=== PATIENT | female | born 1995 | race Two or more races ===

== ENCOUNTER 2020-11-29 17:06 | Emergency (ER) | payer OTHER ==
[2020-11-29 17:29] VITALS: BMI 32.5
[2020-11-29 18:28] LABS: BASO % 1.9 % (0-2.0); EOS % 0.4 % (0-4.5); HEMATOCRIT 45.9 % (32.4-45.2); HEMOGLOBIN 15.4 GM/dl (10.7-15.3); LYMPH % 27.7 % (8-40); MCH 28.6 pg (25.7-33.7); MCHC 33.6 g/dl (32.0-36.0); MEAN CELL VOLUME 85.1 fl (80-96); MEAN PLT VOLUME 7.9 fl (7.5-11.1); MONO % 7.7 % (3.8-10.2); NEUT % 62.3 % (42.8-82.8); PLATELET COUNT 263 K/MM3 (134-434); RDW 12.3 % (11.6-15.6); WHITE BLOOD COUNT 10.9 K/mm3 (4.0-10.8)
[2020-11-29 18:44] LABS: ACTIVATED PTT 31.6 SECONDS (25.2-36.5)
[2020-11-29 18:47] LABS: ALBUMIN 4.8 g/dl (3.4-5.0); ALK PHOS 62 U/L (45-117); ANION GAP 6 MMOL/L (8-16); BILIRUBIN,TOTAL 0.8 mg/dl (0.2-1); CALCIUM 9.5 mg/dl (8.5-10); CHLORIDE 105 mmol/L (98-107); CO2 26 mmol/L (21-32); CREATININE 0.4 mg/dl (0.55-1.3); GLUCOSE,RANDOM 85 mg/dl (74-106); POTASSIUM 4.5 mmol/L (3.5-5.1); SGOT/AST 35 U/L (15-37); SGPT/ALT 41 U/L (13-61); SODIUM 137 mmol/L (136-145); TOT PROT 6.8 g/dl (6.4-8.2)
[2020-11-29 18:49] LABS: INR 1.25 (0.82-1.09); PROTHROMBIN TIME (PATIENT) 13.8 SEC (10.2-13.0)
[2020-11-29 19:21] VITALS: BP 108/68; PULSE 69; TEMP 98
[2020-11-29 20:55] LABS: OPIATES, URI NEGATIVE ng/ml (CUTOFF=300)
[2020-11-29 20:56] LABS: COCAINE, UR NEGATIVE ng/ml (CUTOFF=300); METHADONE, UR NEGATIVE ng/ml (CUTOFF=300); PHENCYCLIDINE,URINE NEGATIVE ng/ml (CUTOFF=25); URINE AMPHETAMINES NEGATIVE ng/ml (CUTOFF=500); URINE BARBITURATES NEGATIVE ng/ml (CUTOFF=200); URINE BENZODIAZEPINES NEGATIVE ng/ml (CUTOFF=200)
== END 2020-11-29 19:50 | disposition short-term general hospital (02) ==
LOC: FER 17:06
DX: T39.1X4A Poisoning by 4-Aminophenol derivatives, undetermined, initial encounter (principal)
CPT/HCPCS: 36415; 80053; 80307; 85025; 85610; 85730; 93005; 99284-25